=== PATIENT | female | born 1975 | race Caucasian/White ===

== ENCOUNTER 2020-06-21 15:06 | Emergency (ER) | payer OTHER ==
[~2020-06-21] VITALS: Ht 160 cm; Wt 88.5 kg
[2020-06-21 17:44] VITALS: BP 138/67
== END 2020-06-21 17:45 | disposition home or self-care (01) ==
LOC: ER 15:06
DX: S61.451A Open bite of right hand, initial encounter (principal); Z29.14 Encounter for prophylactic rabies immune globulin; Z23 Encounter for immunization; Z91.040 Latex allergy status; Z88.2 Allergy status to sulfonamides; W55.01XA Bitten by cat, initial encounter; Y93.89 Activity, other specified; Y92.89 Other specified places as the place of occurrence of the external cause; Y99.8 Other external cause status

== ENCOUNTER 2020-06-24 18:34 | Emergency (ER) | payer OTHER ==
[~2020-06-24] VITALS: Ht 160 cm; Wt 88.5 kg
[2020-06-24 18:36] VITALS: BP 149/79
== END 2020-06-24 19:34 | disposition home or self-care (01) ==
LOC: ER 18:34
DX: Z23 Encounter for immunization (principal); Z91.040 Latex allergy status; Z88.2 Allergy status to sulfonamides

== ENCOUNTER 2020-06-28 18:39 | Emergency (ER) | payer OTHER ==
[~2020-06-28] VITALS: Ht 160 cm; Wt 88.5 kg
[2020-06-28] MEDS ORDERED: FLUOXETINE HCL60 MG PO (18:52)
[2020-06-28 20:09] VITALS: BP 140/75
== END 2020-06-28 20:11 | disposition home or self-care (01) ==
LOC: ER 18:39
DX: Z23 Encounter for immunization (principal); Z91.040 Latex allergy status; Z88.2 Allergy status to sulfonamides

== ENCOUNTER 2020-07-06 16:48 | Emergency (ER) | payer OTHER ==
[~2020-07-06] VITALS: Ht 160 cm; Wt 88.5 kg
[~2020-07-06 16:48] MED LIST: FLUOXETINE HCL60 MG PO
[2020-07-06 18:04] VITALS: BP 115/61
== END 2020-07-06 18:04 | disposition home or self-care (01) ==
LOC: ER 16:48
DX: Z20.3 Contact with and (suspected) exposure to rabies (principal); Z79.899 Other long term (current) drug therapy; Z88.2 Allergy status to sulfonamides; Z91.040 Latex allergy status